=== PATIENT | male | born 1990 | race Asian ===

== ENCOUNTER 2023-03-22 22:36 | Emergency (ER) | payer MEDICAID ==
[~2023-03-22] VITALS: Ht 175.3 cm; Wt 84.8 kg
[2023-03-22 23:39] VITALS: BP_SYST 114; PULSE 59; RESP 20; TEMP 97; O2SAT 100
[2023-03-23] MEDS ORDERED: KETOROLAC TROMETHAMINE 60 MG/2 ML VIAL IM ONE (01:15)
[2023-03-23 01:49] VITALS: BP_SYST 114; PULSE 59; RESP 20; TEMP 97; O2SAT 100
[2023-03-24] MEDS ORDERED: CYCL10TA24 PO (03:45)
[2023-03-24] MEDS ORDERED: CIPR500T5 PO (03:51)
[2023-03-24] MEDS ORDERED: AMOX-423 PO (03:58)
== END 2023-03-23 01:50 | disposition home or self-care (01) ==
LOC: SED 22:36
DX: M54.50 Low back pain, unspecified (principal); Z79.899 Other long term (current) drug therapy
CPT/HCPCS: 99283; 96372; J1885